=== PATIENT | female | born 1980 | race Caucasian/White ===

== ENCOUNTER 2018-10-25 11:09 | Emergency (ER) | payer OTHER ==
[~2018-10-25] VITALS: Ht 165.1 cm; Wt 65.5 kg
[~2018-10-25 11:09] MED LIST: PTU50
[2018-10-25 11:10] VITALS: BP 182/93
--- NOTE | 2018-10-25 11:16 | NUR ---
PT AMBULATED TO ER BED 09
--- NOTE | 2018-10-25 11:20 | NUR ---
DR SANTOS AT BEDSIDE
--- NOTE | 2018-10-25 11:42 | NUR ---
38 YO F BIB SELF W/ C/O ABD PAIN 2 DAYS AGO AND YESTERDAY W/ INTERMITTENT DIARRHEA. PT STATES SHE WENT TO URGENT CARE 2 DAYS AGO AND TOLD TO COME TO ER BECAUSE OF LLQ PAIN W/ REBOUND TENDERNESS FOR A CT SCAN. PT STATES THAT SHE WOKE UP TODAY W/O PAIN. STATES SHE HAD NORMAL BM AND FEELS FINE TODAY. NO COMPALINTS. HX GRAVE'S DISEASE RX PROPANOLOL
[2018-10-25 11:46] LABS: BARBITURATE, URINE NEG. ng/ml (NEG <=200); BENZODIAZEPINE, URINE NEG. ng/mL (NEG <=200); CANNABINOID, URINE POS. ng/mL (NEG <=50); COCAINE, URINE NEG. ng/mL (NEG <=300); OPIATE, URINE NEG. ng/mL (NEG <=2000); PHENCYCLIDINE SCREEN,URINE NEG. ng/mL (NEG <=25)
[2018-10-25 11:50] LABS: BILIRUBIN,URINE 1+ (NEGATIVE); COLOR,URINE YELLOW (YELLOW); LEUKOCYTE ESTERASE ,URINE NEGATIVE (NEGATIVE); NITRITE, URINE NEGATIVE (NEGATIVE); UGLUCOSE NEGATIVE (NEGATIVE)
[2018-10-25 11:53] LABS: APPEARANCE,URINE SLIGHTLY HAZY (CLEAR); RBC,URINE 0-5 (RARE) /HPF (0-5); WBC,URINE 0-5 (RARE) /HPF (0-5)
[2018-10-25 11:54] LABS: BLOOD, URINE 1+ (NEGATIVE)
[2018-10-25 12:12] VITALS: BP 156/87
--- NOTE | 2018-10-25 12:13 | NUR ---
Patient discharged with v/s stable. Written and verbal after care instructions given and explained. Patient verbalized understanding. Ambulatory with steady gait. All questions addressed prior to discharge. Advised to follow up with PMD.
== END 2018-10-25 12:13 | disposition home or self-care (01) ==
LOC: MED 11:09
DX: R10.32 Left lower quadrant pain (principal); R45.82 Worries; F12.10 Cannabis abuse, uncomplicated; E07.9 Disorder of thyroid, unspecified; Z79.899 Other long term (current) drug therapy
CPT/HCPCS: 80305; 81001; 81025; 99283

== ENCOUNTER 2019-03-18 04:12 | Emergency (ER) | payer OTHER ==
[~2019-03-18] VITALS: Ht 149.9 cm; Wt 67.6 kg
[2019-03-18 04:25] VITALS: BP 128/88
--- NOTE | 2019-03-18 04:25 | NUR ---
38 Y/O F PRESENTED TO ED WITH C/O COUGH X1 WEEK, WORSENING X3DAYS AGO. SELF MEDICATED WITH ALBUTEROL INHALER FOR PAST 2DAYS WITH NO RELIEF. PRODUCTIVE COUGH WITH GREEN PHELGM. WHEEZING HEARD THROUGHOUT LUNG [place]. C/O 8/10 CHEST PAIN ONLY WHEN COUGHING. O2 SATURATION MAINTAINED AT 95% ON ROOM AIR. CAP REFILL LESS THAN 3 SECONDS. ERMD NOTIFIED. WILL CONTINUE TO MONITOR.
--- NOTE | 2019-03-18 04:25 | NUR ---
to bed # 05 ambulatory
[2019-03-18] MEDS ORDERED: ALBUTEROL SULFATE/IPRATROPIU 3 ML SOL IH ONE (04:45)
[2019-03-18] MEDS ORDERED: predniSONE 20 MG TAB PO ONE (04:45)
[2019-03-18] MEDS ORDERED: ALBUTEROL 0.083% 2.5 MG/3 ML NEBU INH ONE (05:05)
[2019-03-18] MEDS ORDERED: AZITHROMYCIN 250 MG TAB PO ONE (05:30)
--- NOTE | 2019-03-18 05:44 | NUR ---
Patient discharged with v/s stable. Written and verbal after care instructions given and explained. Patient alert, oriented and verbalized understanding of instructions. Ambulatory with steady gait. All questions addressed prior to discharge. ID band removed. Patient advised to follow up with PMD. Rx of Prednisone, albuterol, and azithromycin given. Patient educated on indication of medication including possible reaction and side effects. Opportunity to ask questions provided and answered.
== END 2019-03-18 05:44 | disposition home or self-care (01) ==
LOC: MED 04:12
DX: R05 Cough (principal); R06.02 Shortness of breath; R06.2 Wheezing; E07.9 Disorder of thyroid, unspecified; Z79.899 Other long term (current) drug therapy
CPT/HCPCS: 71045; 94640; 94760; 99284; J7512; J7613; J7620; Q0092; 94644

== ENCOUNTER 2019-07-24 12:28 | Emergency (ER) | payer OTHER ==
[~2019-07-24] VITALS: Ht 165.1 cm; Wt 70.8 kg
[2019-07-24 12:39] VITALS: BP 135/86
--- NOTE | 2019-07-24 12:47 | NUR ---
PT WENT TO BED 11.
--- NOTE | 2019-07-24 13:10 | NUR ---
PT PRESENTS TO ED FRO EVALUATION OF BUG BITE AND COUGH X 2 DAYS. PT AAO X4, GCS 15, AMBULATORY WITH STEDAY GAIT. RESPIATIONS EVEN AND UNLABORED, BL LUNG CLEAR. C/O NON PRODUCTIVE COUGH. SKIN WARM/PINK/DRY, +PMSC. NOTED LT THIGH RASH WITH MILD SWOLLEN. VS WNL. NO ACUTE DISTRESS AT THIS TIME. WILL CONTINUE TO MONITOR
--- NOTE | 2019-07-24 13:31 | NUR ---
Patient discharged with v/s stable. Written and verbal after care instructions given and explained. Patient alert, oriented and verbalized understanding of instructions. Ambulatory with steady gait. All questions addressed prior to discharge. ID band removed. Patient advised to follow up with PMD. Rx of AEROCHAMBER, CLARITIN D12 HRS 5/120 MG, ALBUTEROL 90MCG/ACTUATION, PREDNISONE 20 MG given. Patient educated on indication of medication including possible reaction and side effects. Opportunity to ask questions provided and answered.
[2019-07-24 13:32] VITALS: BP 130/80
== END 2019-07-24 13:31 | disposition home or self-care (01) ==
LOC: MED 12:28
DX: S70.362A Insect bite (nonvenomous), left thigh, initial encounter (principal); J45.909 Unspecified asthma, uncomplicated; I10 Essential (primary) hypertension; Z86.39 Personal history of other endocrine, nutritional and metabolic disease; Z98.890 Other specified postprocedural states; Z79.899 Other long term (current) drug therapy; W57.XXXA Bitten or stung by nonvenomous insect and other nonvenomous arthropods, initial encounter; Y92.89 Other specified places as the place of occurrence of the external cause; Y93.89 Activity, other specified; Y99.8 Other external cause status
CPT/HCPCS: 99283